=== PATIENT | female | born 1985 | race Caucasian/White ===

== ENCOUNTER 2022-07-11 07:54 | Outpatient (REF) | payer OTHER, SELFPAY ==
[2022-07-11 08:30] LABS: MANUAL DIFF FLAG NO
[2022-07-11 08:39] LABS: Basophils Percent Auto 0.7 % (0-2); Eosinophils Absolute Auto 0.3 X10*3/uL (0.0-0.4); Eosinophils Percent Auto 4.5 % (0-4); Hemoglobin 13.6 g/dl (12.0-16.0); Imm Gran Abs Auto 0.02 X10*3/uL (0.00-0.03); Imm Gran Pct Auto 0.4 % (0.0-0.4); Lymphocytes Absolute Auto 1.2 X10*3/uL (1.2-4.9); Lymphocytes Percent Auto 21.3 % (20-40); Mean Corpuscular HGB Conc 33.2 g/dl (31.0-35.0); Mean Corpuscular Hemoglobin 28.8 pg (27.0-33.0); Mean Corpuscular Volume 86.7 fL (80.0-98.0); Mean Platelet Volume 9.5 fL (9.4-12.3); Monocytes Absolute Auto 0.8 X10*3/uL (0.1-1.2); Monocytes Percent Auto 13.5 % (2-11); Neutrophils Absolute Auto 3.3 x10*3/uL (2.0-8.3); Neutrophils Percent Auto 59.6 % (45-73); Platelet Count 302 X10*3/uL (160-400); Red Blood Count 4.73 X10*6/uL (4.20-5.50); Red Cell Distribution Width 13.6 % (11.0-16.0); White Blood Count 5.5 X10*3/uL (4.8-10.8)
[2022-07-11 09:06] LABS: Alanine Aminotransferase 18 U/L (0-31); Alkaline Phosphatase 50 U/L (39-117); Anion Gap 11 (12-20); Aspartate Amino Transferase 15 U/L (5-31); Bilirubin Direct 0.3 mg/dL (0.0-0.5); Bilirubin Total 0.9 mg/dL (0.0-1.0); Blood Urea Nitrogen 8 mg/dL (9-16); Calcium 9.3 mg/dL (8.4-10.2); Carbon Dioxide 26 mmol/L (22-29); Chloride 107 mmol/L (96-108); Estimated Glomerular Filt Rate > 60; Glucose Random 85 mg/dL (60-115); Potassium 4.2 mmol/L (3.3-5.1); Sodium 140 mmol/L (135-145); Total Protein 6.5 g/dL (6.5-8.0)
[2022-07-11 10:20] LABS: UPreg QC Valid YES; Urine Pregnancy NEGATIVE (NEGATIVE)
[2022-07-13 04:37] LABS: HIV AB/AG Nonreactive (Nonreactive); HIV Num 1 0.17 S/CO (0.00-0.99); ~HepC Num1 0.33 S/CO (0.00-0.79); ~Hepatitis C Antibody Nonreactive (Nonreactive)
== END 2022-07-11 07:55 | disposition home or self-care (01) ==
LOC: HO.LAB 07:54
PROVIDERS: Visit Provider Obstetrics & Gynecology
DX: Z01.818 Encounter for other preprocedural examination (principal); Z11.4 Encounter for screening for human immunodeficiency virus [HIV]; Z01.89 Encounter for other specified special examinations
CPT/HCPCS: 36415; 80048; 80076; 81025; 85025; 86803; 87389

== ENCOUNTER 2024-02-20 22:03 | Emergency (ER) | payer OTHER, SELFPAY ==
--- NOTE | ~2024-02-20 | XR_ITS ---
CLINICAL HISTORY: pain, gastric band placement? 1 view abdomen Comparison: None Findings: No pneumoperitoneum or pneumatosis. No abnormal calcifications. No acute fractures. IMPRESSION: Gastric lap band positioning appears unremarkable, phi angle 58 degrees. Within normal limits. This document has been electronically signed by: Melisa Samayoa MD on 02/21/2024 01:43:14
[2024-02-20 22:06] VITALS: BP 121/82; PULSE 108; RESP 18; TEMP 36.2; O2SAT 98; BMI 30.2
[2024-02-20 23:06] LABS: MANUAL DIFF FLAG NO
[2024-02-20 23:08] LABS: Basophils Percent Auto 0.2 % (0-2); Eosinophils Absolute Auto 0.1 X10*3/uL (0.0-0.4); Eosinophils Percent Auto 0.6 % (0-4); Hemoglobin 16.1 g/dl (12.0-16.0); Imm Gran Abs Auto 0.07 X10*3/uL (0.00-0.03); Imm Gran Pct Auto 0.6 % (0.0-0.4); Lymphocytes Absolute Auto 0.7 X10*3/uL (1.2-4.9); Lymphocytes Percent Auto 5.4 % (20-40); Mean Corpuscular HGB Conc 34.3 g/dl (31.0-35.0); Mean Corpuscular Hemoglobin 28.7 pg (27.0-33.0); Mean Corpuscular Volume 83.8 fL (80.0-98.0); Mean Platelet Volume 8.7 fL (9.4-12.3); Monocytes Absolute Auto 1.4 X10*3/uL (0.1-1.2); Monocytes Percent Auto 10.6 % (2-11); Neutrophils Absolute Auto 10.5 x10*3/uL (2.0-8.3); Neutrophils Percent Auto 82.6 % (45-73); Platelet Count 363 X10*3/uL (160-400); Red Blood Count 5.61 X10*6/uL (4.20-5.50); Red Cell Distribution Width 13.3 % (11.0-16.0); White Blood Count 12.7 X10*3/uL (4.8-10.8)
[2024-02-20 23:22] LABS: Alanine Aminotransferase 34 U/L (0-31); Albumin Level 4.5 g/dL (3.5-5.0); Alkaline Phosphatase 70 U/L (39-117); Anion Gap 12 (12-20); Aspartate Amino Transferase 32 U/L (5-31); Bilirubin Total 0.6 mg/dL (0.0-1.0); Blood Urea Nitrogen 10 mg/dL (9-16); Calcium 8.7 mg/dL (8.4-10.2); Carbon Dioxide 20 mmol/L (22-29); Chloride 109 mmol/L (96-108); Creatinine Clr Calc Pharmacy 89.6; Estimated Glomerular Filt Rate > 60; Glucose Random 111 mg/dL (60-115); Potassium 3.2 mmol/L (3.3-5.1); Sodium 138 mmol/L (135-145)
[2024-02-20] MEDS: Ondansetron ODT 4 MG TAB.RAPDIS TRANSLINGU (23:35)
[2024-02-20 23:46] LABS: Influenza A PCR NEGATIVE (Negative); Influenza B PCR NEGATIVE (Negative); Resp Syncy Virus RNA Qual PCR NEGATIVE (Negative); SARS COV2 PCR INHOUSE NEGATIVE (Negative)
[2024-02-21] MEDS: Dicyclomine HCl 10 MG CAPSULE 20 MG PO (00:52)
[2024-02-21] MEDS: Metoclopramide HCl 10 MG/2 ML VIAL IVPUSH (00:52)
[2024-02-21] MEDS: 0.9 % Sodium Chloride 1,000 ML 999 ML IV (00:53)
[2024-02-21] MEDS: Potassium Chloride/H20 10 MEQ/100 ML PIGGYBACK 100 MEQ IV (00:53)
--- NOTE | 2024-02-21 00:56 | PC.NURSE ---
Iv placed and medicated per apr. Notified ANTONIETA Peraza.
--- NOTE | 2024-02-21 01:56 | ED.ABDPAIN ---
HPI - Abdominal Pain General Chief Complaint: Abdominal Pain Stated Complaint: vomiting Time Seen by Provider: 02/21/24 00:32 Source: patient Limitations: no limitations History of Present Illness ED Provider: Yany Deleon PA-C HPI narrative: 38-year-old female presents with abdominal pain times 2 days. Pain is diffuse and severe at times. Unable to describe the nature of her discomfort. Associated fever, chills, nausea , vomiting and diarrhea. Patient's family is sick with similar symptoms at home. Patient states her symptoms have been the most severe out of all of her family members. Given diffuse abdominal discomfort, the patient was concerned that there may be an issue with her gastric band; she has had the gastro band for an extended period of time. Patient denies recent hospital, hospitalization or use of antibiotics. Related Data Previous Rx's ?Medication ?Instructions ?Recorded dicyclomine 20 mg tablet 20 mg PO BID PRN diarrhea #7 tabs 02/21/24 ondansetron HCl 4 mg tablet 4 mg PO Q8H PRN nausea and 02/21/24 vomiting #10 tabs Allergies Allergy/AdvReac Type Severity Reaction Status Date / Time No Known Allergies Allergy Unknown Verified 02/20/24 22:07 Review of Systems Review of Systems Yes all other systems are reviewed and are negative Constitutional: Reports chills, Reports fatigue, Reports fever(s) and Reports malaise Cardiovascular: Denies chest pain and Denies dyspnea Respiratory: Denies cough and Denies dyspnea Gastrointestinal: Reports abdominal pain, Reports diarrhea, Reports nausea and Reports vomiting Endocrine: Reports fatigue PMFSH Past Medical History Attestation statement: The following information was validated with the patient. Social History Social History (System 12/03/22 @ 15:02 by Sherrell Pascual) Advance Directives: No Advance Directives Information Provided: Yes Do you have a plan to hurt others: No Plan Physical Exam ED Vital Signs: Vital Signs - 24 hr 02/20/24 22:06 Temperature 97.2 F Pulse Rate 108 H Respiratory Rate 18 Blood Pressure 121/82 Pulse Oximetry 98 Oxygen Delivery Method Room Air BMI result Body Mass Index 30.2 Const Other: Alert Orientation/consciousness: patient oriented x3 Resp Effort & Inspection: normal respiratory effort Cardio Other: Normal peripheral perfusion GI Other: Abdomen is soft, nondistended, mild generalized tenderness without guarding Skin Other: Warm dry no rash Neuro General: patient oriented x3, no focal motor deficits and CN's II-XI intact bilaterally Psych Other: Calm cooperative Medical Decision Making Medical Decision Making MDM Narrative: 38-year-old female presents with abdominal pain times 2 days. Pain is diffuse and severe at times. Unable to describe the nature of her discomfort. Associated fever, chills, nausea , vomiting and diarrhea. Patient's family is sick with similar symptoms at home. Patient states her symptoms have been the most severe out of all of her family members. Given diffuse abdominal discomfort, the patient was concerned that there may be an issue with her gastric band; she has had the gastro band for an extended period of time. Patient denies recent hospital, hospitalization or use of antibiotics. No relevant chronic issues History: Per patient I have considered the following differential diagnoses: Viral gastroenteritis, traveler's diarrhea, C diff, diverticulitis Plan: Viral gastroenteritis has been prevalent within the community, this is the likely cause for the patient's symptoms given her whole family is sick as well. We will be giving symptomatic treatment. Screening labs were already obtained an completed from triage, her potassium was subtly low. Her abdominal exam was benign, she does not require advanced imaging. In regard to her concerned for displacement of the gastric band, I will obtain a KUB. To note she has no risk factors for C diff or for traveler's diarrhea. I have independently reviewed the following tests: Labs: Leukocytosis, not anemic she is hemoconcentrated, no electrolyte abnormality other than subtly low potassium at 3.2, viral panel neg KUB,: MPRESSION: Gastric lap band positioning appears unremarkable, phi angle 58 degrees. Within normal limits. This document has been electronically signed by: Melisa Samayoa MD on 02/21/2024 01:43:14 Lab Data 02/20/24 22:57 02/20/24 22:57 Labs: Lab Results 02/20/24 Range/Units 22:57 WBC 12.7 H (4.8-10.8) X10*3/uL RBC 5.61 H (4.20-5.50) X10*6/uL Hgb 16.1 H (12.0-16.0) g/dl Hct 47.0 (37.0-47.0) % MCV 83.8 (80.0-98.0) fL MCH 28.7 (27.0-33.0) pg MCHC 34.3 (31.0-35.0) g/dl RDW 13.3 (11.0-16.0) % Plt Count 363 (160-400) X10*3/uL MPV 8.7 L (9.4-12.3) fL Immature Gran % (Auto) 0.6 H (0.0-0.4) % Neut % (Auto) 82.6 H (45-73) % Lymph % (Auto) 5.4 L (20-40) % Marshall % (Auto) 10.6 (2-11) % Eos % (Auto) 0.6 (0-4) % Baso % (Auto) 0.2 (0-2) % Lymph # (Auto) 0.7 L (1.2-4.9) X10*3/uL Marshall # (Auto) 1.4 H (0.1-1.2) X10*3/uL Eos # (Auto) 0.1 (0.0-0.4) X10*3/uL Baso # (Auto) 0.0 (0.0-0.2) X10*3/uL Abs Immat Gran (auto) 0.07 H (0.00-0.03) X10*3/uL Absolute Neuts (auto) 10.5 H (2.0-8.3) x10*3/uL Absolute Nucleated RBC 0.000 (0.0-0.012) X10*3/uL Nucleated RBC % (auto) 0.0 (0.0-0.2) /100WBC Sodium 138 (135-145) mmol/L Potassium 3.2 L (3.3-5.1) mmol/L Chloride 109 H (96-108) mmol/L Carbon Dioxide 20 L (22-29) mmol/L Anion Gap 12 (12-20) BUN 10 (9-16) mg/dL Creatinine 0.79 (0.5-1.4) mg/dL Estim Creat Clear Calc 89.6 Estimated GFR > 60 Random Glucose 111 (60-115) mg/dL Calcium 8.7 D (8.4-10.2) mg/dL Magnesium 2.0 (1.6-2.6) mg/dL Total Bilirubin 0.6 (0.0-1.0) mg/dL AST 32 H (5-31) U/L ALT 34 H (0-31) U/L Alkaline Phosphatase 70 (39-117) U/L Total Protein 8.0 (6.5-8.0) g/dL Albumin 4.5 (3.5-5.0) g/dL Influenza Type A (PCR) NEGATIVE (Negative) Influenza Type B (PCR) NEGATIVE (Negative) RSV RNA Qual (PCR) NEGATIVE (Negative) SARS-CoV-2 RNA (RT-PCR) NEGATIVE (Negative) Medications Administered Discontinued Medications Generic Name Dose Route Start Last Admin Trade Name Freq PRN Reason Stop Dose Admin Dicyclomine HCl 20 mg 02/21/24 00:32 02/21/24 00:52 Dicyclomine Hcl 10 Mg Capsule PO 02/21/24 00:33 20 mg ONCE ONE Administration Sodium Chloride 1,000 mls @ 999 mls/hr 02/21/24 00:45 02/21/24 00:53 Ns IV 02/21/24 01:45 999 mls/hr .Q1H1M DREW Administration Potassium Chloride 10 meq in 100 mls @ 100 mls/hr 02/21/24 00:32 02/21/24 00:53 Potassium Chloride/H20 IV 02/21/24 01:31 100 mls/hr ONCE ONE Administration Metoclopramide HCl 10 mg 02/21/24 00:36 02/21/24 00:52 Metoclopramide Hcl 10 Mg/2 Ml Vial IVPUSH 02/21/24 00:37 10 mg ONCE ONE Administration Ondansetron HCl 4 mg 02/20/24 23:33 02/20/24 23:35 Ondansetron Odt 4 Mg Tab.Rapdis TRANSLINGU 02/20/24 23:34 4 mg ONCE ONE Administration Discharge Plan Discharge Clinical Impression: Viral gastroenteritis Patient Disposition: Home, Self-Care Instructions: Gastroenteritis (ED) Additional Instructions: You are being treated for viral gastroenteritis, such illness has been prevalent within the community. See home care instructions. Uses Zofran as needed for nausea/ vomiting. Use the dicyclomine as needed for abdominal cramping and diarrhea. Your screening labs were overall unremarkable, you were subtly dehydrated. We screened you for influenza, RSV and COVID, the viral panel was negative. Your gastric band is in proper placement per the abdominal film. Follow up with your primary care provider as needed. Prescriptions: New ondansetron HCl 4 mg tablet 4 mg PO Q8H PRN (Reason: nausea and vomiting) Qty: 10 0RF dicyclomine 20 mg tablet 20 mg PO BID PRN (Reason: diarrhea) Qty: 7 0RF Print Language: [place]
[2024-02-21 02:49] VITALS: BP 112/68; PULSE 98; RESP 16; TEMP 36.7; O2SAT 98
[2024-02-21 02:51] VITALS: BP 112/68; PULSE 98; RESP 16; TEMP 36.7; O2SAT 98
== END 2024-02-21 02:52 | disposition home or self-care (01) ==
PROVIDERS: Physician Assistant Medical; Emergency Provider Emergency Medicine
DX: K52.9 Noninfective gastroenteritis and colitis, unspecified (principal); E87.6 Hypokalemia; R11.2 Nausea with vomiting, unspecified; R10.9 Unspecified abdominal pain; Z03.818 Encounter for observation for suspected exposure to other biological agents ruled out
CPT/HCPCS: 0241U; 74018; 80053; 83735; 85025; 96361; 96365; 96375; 99284; J2765; J3480

== ENCOUNTER → 2024-02-21 00:37 | Outpatient (BNV) | payer OTHER, SELFPAY | PROVIDERS: Emergency Provider Emergency Medicine; Visit Provider Radiology Diagnostic Radiology | DX: R10.9 Unspecified abdominal pain (principal) | CPT/HCPCS: 74018 ==